=== PATIENT | female | born 1985 | race American Indian/Alaskan Native ===

== ENCOUNTER 2017-04-11 09:04 | Outpatient (CLI) | payer MEDICAID ==
--- NOTE | 2017-04-15 07:33 | Cat Scan Report ---
FINAL REPORT PROCEDURE: CT ABDOMEN PELVIS WO/W CON TECHNIQUE: Consent was obtained. Oral contrast was administered and axial sections viewed through the abdomen and pelvis. IV contrast was administered and sections reperformed. Delayed axial sections and coronal and sagittal reformatted images were also submitted. HISTORY: PELVIC PAIN COMPARISON: None FINDINGS: The lung bases are clear. There is no abdominal aortic aneurysm or dissection. There is no focal abnormality seen of the liver, gallbladder, spleen, pancreas, adrenal glands, or kidneys. There is no WATER POLLUTION SPECIALIST abnormality. The urinary bladder is normal. There no ascites or lymphadenopathy. There is no focal bowel abnormality or bowel obstruction. The appendix is normal. No acute osseous abnormality is seen. IMPRESSION: No CT evident abdominal/pelvic pathology.
== END 2017-04-11 09:05 | disposition home or self-care (01) ==
LOC: CT 09:04
PROVIDERS: ATTEND Obstetrics & Gynecology
DX: R10.31 Right lower quadrant pain (principal); R10.2 Pelvic and perineal pain
CPT/HCPCS: 74178; Q9967

== ENCOUNTER 2017-07-02 07:56 | Day surgery (SDC) | payer MEDICAID ==
--- NOTE | 2017-07-02 07:38 | Short Stay Summary ---
Short Stay Documentation Date of service: 07/02/17 Narrative H&P: 32y/o with worsening pelvic pain and abnormal uterine bleeding. The patient has failed medical management to control her bleeding. She reports prolonged menses with heavy bleeding. She states she is having left sided pelvic pain. Imaging was performed that was unremarkable - History Principal diagnosis: pelvic pain and abnormal uterine bleeding Past Medical History: migraines, other (morbid obesity) Past Surgical History: Other (ovarian cystectomy; LEEP; D&C) - Allergies and Medications Current Medications: Allergies sumatriptan [From Imitrex] Allergy (Verified 06/27/17 15:52) Hives STATES CAUSES HIVES AND COUGH Home Medications Medication Instructions Recorded Confirmed Last Taken Type Butalb/Acetamin/Caff 50-325-40 1 tab PO Q8HR PRN 06/27/17 06/27/17 Unknown History [Fioricet] Ibuprofen [Motrin 800 MG tab] 800 mg PO PRN PRN 06/27/17 06/27/17 Unknown History medroxyPROGESTERone ACETATE 150 mg IM [id number] 06/27/17 06/27/17 06/18/17 History [Depo-Provera] - Physical exam General appearance: no acute distress Integumentary: no rash HEENT: Atraumatic Lungs: Clear to auscultation Breasts: deferred Heart: Regular rate Gastrointestinal: normal Female Genitourinary: deferred Rectal Exam: deferred - Brief post op/procedure progress note Date of procedure: 07/02/17 Pre-op diagnosis: chronic pelvic pain; abnormal uterine bleeding Post-op diagnosis: same Procedure: Exploratory laparoscopy Lysis of adhesions Ovarian cystectomy Ovarian drilling Hysteroscopy Dilatation and curettage Anesthesia: LIDIA Surgeon: WILLIS HAYNES Estimated blood loss: minimal Pathology: list (endometrial curettings; ovarian cyst wall) Specimen disposition: to lab - Hospital course Hospital course: The patient was admitted at that surgery underwent a laparoscopy, lysis of adhesions, dilatation and curettage, hysteroscopy. Please see operative details of surgery. Her postoperative course was uneventful. The patient is discharged home when she met discharge criteria. - Disposition Condition at discharge: Good Disposition: DC-01 TO HOME OR SELFCARE Short Stay Discharge Plan Activity: other (pelvic rest for 1 week) Diet: regular Additional Instructions: Follow-up with Dr. Zamora in 2-4 weeks Prescriptions: Ibuprofen [Motrin] 800 mg PO Q8HR PRN #60 tablet PRN Reason: Pain Oxycodone HCl/Acetaminophen [Percocet 10/325 mg] 1 each PO Q8H PRN #30 tablet PRN Reason: Pain
[2017-07-02] MEDS ORDERED: NACL BACTERIOSTATIC INFILTRATI ONE (09:20)
[2017-07-02] MEDS ORDERED: MARCAINE 0.5% 30 ML INFILTRATI ONE (09:33)
[2017-07-02] MEDS ORDERED: SILVER NITRATE TP ONE (09:34)
--- NOTE | 2017-07-02 09:41 | Anesthesia Consultation ---
Anesthesia Consult and Med Hx Date of service: 07/02/17 - Airway Anesthetic Teeth Evaluation: Good ROM Head & Neck: Adequate Mental/Hyoid Distance: Adequate Mallampati Class: Class III Intubation Access Assessment: Possibly Difficult - Pre-Operative Health Status ASA Pre-Surgery Classification: ASA3 Proposed Anesthetic Plan: General - Pulmonary Hx Smoking: No Hx Sleep Apnea: No (MINE PRE SCREEN LOW RISK) - Cardiovascular System Hx Hypertension: No - Central Nervous System Hx Seizures: No (Migranes) - Other Systems Hx Cancer: No Hx Obesity: Yes (BMI 58.5)
--- NOTE | 2017-07-02 09:42 | Anesthesia Day of Surgery ---
Anesthesia Day of Surgery - Day of Surgery Patient Examined: Yes Patient H&P Reviewed: Yes Patient is NPO: Yes
[2017-07-02] MEDS ORDERED: DIPRIVAN 10 MG/ML IV ONE (09:46)
[2017-07-02] MEDS ORDERED: DILAUDID ONE (09:47)
[2017-07-02] MEDS ORDERED: ZEMURON IV ONE (09:47)
[2017-07-02] MEDS ORDERED: XYLOCAINE MPF 2% ONE (09:47)
[2017-07-02] MEDS ORDERED: VERSED IV NR (10:00)
[2017-07-02] MEDS ORDERED: PEPCID IV NR (10:00)
[2017-07-02] MEDS ORDERED: NACL 0.9% 1000 ML 1,000 ML IV SCH (10:00)
[2017-07-02] MEDS ORDERED: PERCOCET 5/325 PO PRN (10:14)
[2017-07-02] MEDS ORDERED: DILAUDID IV PRN (10:14)
[2017-07-02] MEDS ORDERED: ZOFRAN ONE (10:55)
[2017-07-02] MEDS ORDERED: ROBINUL ONE (10:55)
[2017-07-02] MEDS ORDERED: NEOSTIGMINE ONE (10:55)
[2017-07-02] MEDS ORDERED: MARCAINE 0.5% INFILTRATI ONE (11:00)
[2017-07-02] MEDS ORDERED: NACL 0.9% 1000 ML 1,000 ML ONE (11:19)
--- NOTE | 2017-07-02 11:45 | Operative Report ---
Operative Report Operative Report: Date of surgery: 07/02/2017 Preoperative diagnosis: Chronic pelvic pain; abnormal uterine bleeding Postoperative diagnosis: Same as above Procedure: Exploratory laparoscopy; lysis of adhesions; ovarian cystectomy; ovarian drilling; hysteroscopy; dilatation and curettage Surgeon: Azucena Zamora M.D. Anesthesia: General endotracheal anesthesia Estimated blood loss: Minimal Findings: Multiple fine filmy adhesions involving the pelvis. There were evidence of adhesions involving the anterior and posterior cul-de-sac. The adnexa bilaterally involved filmy adhesions. Multiple ovarian follicles. Overall endometrial cavity Indication: A 32-year-old black female with a history of abnormal uterine bleeding and worsening chronic pelvic pain. Procedure: The patient was taken to the operating room and given general endotracheal anesthesia without complication. The patient is prepped and draped in a normal sterile fashion. A bivalve speculum was placed in the patient's vagina and a single-tooth tenaculum was placed on the anterior lip of the cervix .A uterine acorn manipulato rwas placed, and the bivalve speculum was then removed. Attention was then turned to the patient's abdomen where a 5 mm infraumbilical skin incision was then made. A Veress needle was placed and peritoneal entry was verified water-filled syringe. Insufflation of the peritoneal cavity was performed with CO2 gas. A 5 mm trocar was placed and the laparoscope was then inserted. The patient was then placed in Trendelenburg. A 5 mm suprapubic skin incision was then made. Under direct visualization a 5 mm trocar was then placed. An additional left lateral 5 mm trocar was placed under direct visualization. General survey of the patient's abdomen revealed multiple thin filmy adhesions involving the pelvis. There were anterior and posterior adhesions involving the cul-de-sac. Multiple ovarian follicles and small simple cysts involving the ovaries bilaterally. The uterus was adherent to the anterior abdominal wall. The monopolar scissors were used in order to visualize the adhesions. The left ovary was grasped with a grasper. The monopolar scissors were used in order to coagulate the multiple follicles. A left ovarian cyst was explored and removal of the cyst wall was performed. Attention was turned to the patient's right ovary where ovarian drilling was performed on the ovarian follicles with the monopolar scissors. The pneumoperitoneum was then released. The 5 mm trocars and laparoscope were then removed. The skin incisions were then closed with 4-0 Monocryl. The incisions were injected with quarter percent Marcaine. Dressings were applied to the incision. Attention was then turned to the patient's pelvis where the bivalve speculum was replaced. The cervical os was dilated with graduated dilators. The hysteroscope was then inserted and insufflation of the endometrial cavity was performed with normal saline. General survey of the endometrial cavity revealed normal findings. There is no evidence of any intracavitary lesions. The hysteroscope was then removed. A sharp curettage and endometrial surface was performed. The vaginal instruments were then removed atraumatically. Then successfully extubated and taken to the recovery room. All sponge laps and needle counts were correct 2. Specimen sent to pathology was ovarian cyst wall and endometrial curettings.
[2017-07-02] MEDS ORDERED: DEMEROL IV PRN (13:21)
[2017-07-02 13:54] VITALS: BP 118/76
== END 2017-07-02 14:33 | disposition home or self-care (01) ==
LOC: OR 07:56
PROVIDERS: ATTEND Obstetrics & Gynecology
DX: N93.9 Abnormal uterine and vaginal bleeding, unspecified (principal); N73.6 Female pelvic peritoneal adhesions (postinfective); N83.202 Unspecified ovarian cyst, left side; N83.201 Unspecified ovarian cyst, right side; E66.01 Morbid (severe) obesity due to excess calories; F32.9 Major depressive disorder, single episode, unspecified; G89.29 Other chronic pain; R10.2 Pelvic and perineal pain; Z68.43 Body mass index [BMI] 50.0-59.9, adult; Z88.8 Allergy status to other drugs, medicaments and biological substances; Z91.048 Other nonmedicinal substance allergy status
CPT/HCPCS: 58558; 58662; 81025; 88305; J1170; J2175; J2250; J2405; J2704; J2710; J7030

== ENCOUNTER 2018-11-24 09:19 | Day surgery (SDC) | payer MEDICAID ==
[2018-11-24 10:30] LABS: INR 1.01 (0.87-1.13)
[2018-11-24 10:31] LABS: Partial Thromboplastin Time 21.8 Sec. (24.2-36.6)
[2018-11-24 10:35] LABS: Basophils % (Auto) 0.4 % (0.0-1.8); Eosinophils # (Auto) 0.2 K/mm3 (0.0-0.4); Eosinophils % (Auto) 3.2 % (0.0-4.3); Hematocrit 41.2 % (30.3-42.9); Hemoglobin 13.7 gm/dl (10.1-14.3); Lymphocytes # (Auto) 1.7 K/mm3 (1.2-5.4); Lymphocytes % (Auto) 22.8 % (13.4-35.0); Mean Corpuscular HGB Conc 33 % (30-34); Mean Corpuscular Volume 85 fl (79-97); Monocytes # (Auto) 0.5 K/mm3 (0.0-0.8); Monocytes % (Auto) 6.2 % (0.0-7.3); Platelet Count 285 K/mm3 (140-440); Red Blood Count 4.83 M/mm3 (3.65-5.03); Red Cell Distribution Width 14.5 % (13.2-15.2)
[2018-11-24] MEDS ORDERED: XYLOCAINE 1% 20 mL ONE (10:53)
--- NOTE | 2018-11-24 11:43 | Short Stay Summary ---
Short Stay Documentation Date of service: 11/24/18 - History Principal diagnosis: intracranial hypertension, headache Past Medical History: migraines - Allergies and Medications Current Medications: Allergies bupropion [From Wellbutrin] Allergy (Verified 11/24/18 09:51) Swelling sumatriptan [From Imitrex] Allergy (Verified 06/27/17 15:52) Hives STATES CAUSES HIVES AND COUGH Home Medications Medication Instructions Recorded Confirmed Last Taken Type Butalb/Acetamin/Caff 50-325-40 1 tab PO Q8HR PRN 06/27/17 11/24/18 11/18/18 History [Fioricet] medroxyPROGESTERone ACETATE 150 mg IM [id number] 06/27/17 11/24/18 10/19/18 History [Depo-Provera] Ibuprofen [Motrin] 800 mg PO Q8HR PRN #60 tablet 07/02/17 11/24/18 11/23/18 Rx Oxycodone HCl/Acetaminophen 1 each PO Q8H PRN #30 tablet 07/02/17 11/24/18 11/21/18 Rx [Percocet 10/325 mg] Cholecalciferol (Vitamin D3) 50,000 unit PO QWEEK 11/24/18 11/24/18 11/23/18 History [Vitamin D3] Elagolix Sodium [Orilissa] 150 mg PO DAILY 11/24/18 11/24/18 11/23/18 History Magnesium Oxide [Mag-Oxide] 400 mg PO DAILY 11/24/18 11/24/18 11/23/18 History Mv-Mn/Iron/Folic Acid/Herb 190 1 each PO DAILY 11/24/18 11/24/18 11/23/18 History [Vitamin D3 Complete Caplet] Riboflavin (Vitamin B2) [Vitamin 50 mg PO DAILY 11/24/18 11/24/18 11/23/18 History B-2] - Physical exam General appearance: no acute distress Neurological: Normal speech, Normal tone, Sensation intact - Brief post op/procedure progress note Date of procedure: 11/24/18 Pre-op diagnosis: intracranial hypertension, headache Post-op diagnosis: other (normal IC pressure on LP) Procedure: flouro guided lumbar puncture Anesthesia: local Surgeon: PETER VALLEJO Estimated blood loss: none Pathology: list (4 CSF tubes) Specimen disposition: to lab Condition: stable - Disposition Condition at discharge: Good Disposition: DC-01 TO HOME OR SELFCARE Short Stay Discharge Plan Follow up with: IVANIA CALDWELL NP-C [Primary Care Provider] - 7 Days
[2018-11-24 11:54] VITALS: BP 139/96
[2018-11-24 12:23] LABS: Glucose,CSF 65 mg/dL
[2018-11-24 14:25] LABS: Total Cells Counted 10 /mm3
[2018-11-24 14:26] LABS: Appearance,CSF Bloody; Basophils CSF 0 %; Red Blood Cell,CSF 13050 /mm3 (0-0); White Blood Cell,CSF 22 /mm3 (1-10)
--- NOTE | 2018-11-24 14:59 | Fluoroscopy Report ---
FLUOROSCOPY LUMBAR PUNCTURE History: Intracranial hypertension. Description of procedure: Informed consent was obtained. Sterile technique was utilized. 1% lidocaine for skin anesthesia. Using fluoroscopy guidance, lumbar puncture was performed at the L2-3 level. One fluoroscopic image was saved. There was spontaneous return of blood-tinged CSF which cleared quickly. The opening pressure was not elevated measuring 10 cm of water. 4 CSF tubes were collected for laboratory analysis. No complications. Impression: Successful fluoroscopy guided lumbar puncture. The opening pressure measured 10 cm water.
== END 2018-11-24 12:30 | disposition home or self-care (01) ==
LOC: CATHLABREC 09:19
PROVIDERS: ATTEND Psychiatry & Neurology Neurology
DX: G93.2 Benign intracranial hypertension (principal); G43.909 Migraine, unspecified, not intractable, without status migrainosus; E66.9 Obesity, unspecified; Z68.44 Body mass index [BMI] 60.0-69.9, adult; Z79.01 Long term (current) use of anticoagulants; Z79.899 Other long term (current) drug therapy; Z87.440 Personal history of urinary (tract) infections; Z98.890 Other specified postprocedural states; Z86.2 Personal history of diseases of the blood and blood-forming organs and certain disorders involving the immune mechanism; Z88.8 Allergy status to other drugs, medicaments and biological substances
CPT/HCPCS: 36415; 62270; 77003; 82947; 84160; 85025; 85610; 85730; 89051